=== PATIENT | female | born 1955 | race Caucasian/White ===

== ENCOUNTER → 2018-06-06 09:45 | Outpatient (CLI) | payer BC, SELFPAY ==
[2018-06-06 10:55] LABS: Add Manual Diff / Slide Review NO; Basophils Percent Auto 0.9 % (0-2); Eosinophils Percent Auto 0.5 % (2-4); Hematocrit 35.4 % (36-46); Hemoglobin 12.1 g/dL (12.0-16.0); Lymphocytes Percent Auto 42.6 % (25-40); Mean Corpuscular HGB Conc 34.1 % (30-36); Mean Corpuscular Volume 99.9 fL (80-100); Monocytes Percent Auto 6.1 % (3-14); Neutrophils Absolute Auto 2100 /uL (1500-7000); Neutrophils Percent Auto 49.9 % (50-75); Platelet Count 250 X10^3/uL (150-400); Red Blood Cell Count 3.55 X10^6/uL (4.0-5.2); Red Cell Distribution Width 12.9 % (11.6-14.8); White Blood Cell Count 4.2 X10^3/uL (4.5-11.0)
[2018-06-06 11:01] LABS: Alanine Aminotransferase 18 IU/L (9-52); Albumin 4.3 g/dL (3.5-5.0); Alkaline Phosphatase 69 U/L (38-126); Aspartate Aminotransferase 21 IU/L (14-36); Bilirubin Total 0.4 mg/dL (0.2-1.3); Blood Urea Nitrogen 12 mg/dL (7-17); Calcium 8.9 mg/dL (8.4-10.2); Carbon Dioxide 25 mmol/L (22-32); Chloride 106 mmol/L (98-107); Cholesterol 142 mg/dL (140-199); Globulin 4.3 g/dL (1.7-4.1); Glucose 97 mg/dL (80-110); HDL Cholesterol 65 mg/dL (40-60); HEMOLYSIS < 15 (0-50); LDL Cholesterol Calculated 58 mg/dL (<100); Potassium 4.3 mmol/L (3.4-5.1); Sodium 142 mmol/L (137-145); Total Protein 8.6 g/dL (6.3-8.2); Triglycerides 94 mg/dL (35-150)
[2018-06-06 11:38] LABS: Thyroid Stimulating Hormone 2.02 uIU/mL (0.47-4.68)
== END ==
PROVIDERS: PCP Family Medicine
DX: Z13.228 Encounter for screening for other metabolic disorders (principal); Z13.220 Encounter for screening for lipoid disorders; Z13.0 Encounter for screening for diseases of the blood and blood-forming organs and certain disorders involving the immune mechanism; Z13.29 Encounter for screening for other suspected endocrine disorder
CPT/HCPCS: 36415; 80053; 80061; 84443; 85025

== ENCOUNTER → 2019-04-22 10:47 | Outpatient (CLI) | payer BC, SELFPAY ==
[2019-04-22 12:28] LABS: Alanine Aminotransferase 23 IU/L (<35); Albumin 4.2 g/dL (3.5-5.0); Albumin Globulin Ratio 0.9 (1.0-2.8); Alkaline Phosphatase 88 U/L (38-126); Aspartate Aminotransferase 28 IU/L (14-36); BUN Creatinine Ratio 8.9 (6-22); Bilirubin Total 0.5 mg/dL (0.2-1.3); Blood Urea Nitrogen 8 mg/dL (7-17); Carbon Dioxide 28 mmol/L (22-32); Chloride 105 mmol/L (98-107); Cholesterol 161 mg/dL (140-199); Estimated Glomerular Filt Rate > 60.0 mL/min (>60); Globulin 4.6 g/dL (1.7-4.1); Glucose 99 mg/dL (80-110); HDL Cholesterol 55 mg/dL (40-60); HEMOLYSIS < 15 (0-50); LDL Cholesterol Calculated 74 mg/dL (<100); Potassium 4.2 mmol/L (3.4-5.1); Sodium 138 mmol/L (137-145); Total Protein 8.8 g/dL (6.3-8.2); Triglycerides 161 mg/dL (35-150)
== END ==
PROVIDERS: PCP Family Medicine; Visit Provider Family Medicine
DX: Z51.81 Encounter for therapeutic drug level monitoring (principal); E03.9 Hypothyroidism, unspecified
CPT/HCPCS: 36415; 80053; 80061; 84443

== ENCOUNTER → 2019-05-02 11:46 | Outpatient (CLI) | payer BC, SELFPAY ==
[2019-05-02 15:54] LABS: Creatinine Urine Random 26.4 mg/dL; Protein (Total) Urine Random 15 mg/dL (0-12); Protein Creatinine Ratio Urine 0.56 GRAM/24H
[2019-05-06 15:00] LABS: Albumin 100 %; Total Urine Protein < 4 mg/dL (5-24); Urine Creatinine, Random 25 mg/dL (20-275)
[2019-05-06 15:18] LABS: Abnormal Protein Band 1 2.3 g/dL (NONE DETECTED); Albumin 3.9 g/dL (3.8-4.8); Alpha 1 Globulin 0.4 g/dL (0.2-0.3); Alpha 2 Globulin 0.8 g/dL (0.5-0.9); Beta 1 Globulin 0.4 g/dL (0.4-0.6); Gamma Globulin 2.5 g/dL (0.8-1.7); Protein, Total 8.3 g/dL (6.1-8.1)
== END ==
PROVIDERS: PCP Family Medicine; Visit Provider Student in an Organized Health Care Education/Training Program
DX: D47.2 Monoclonal gammopathy (principal)
CPT/HCPCS: 36415; 82570; 84155; 84156; 84165; 84166

== ENCOUNTER → 2019-05-04 10:20 | Outpatient (CLI) | payer BC, SELFPAY ==
[2019-05-04 14:52] LABS: Protein (Total) Urine Random 13 mg/dL (0-12)
[2019-05-04 15:03] LABS: Collection Time Urine 24 Hours
[2019-05-04 15:04] LABS: Total Protein 24 Hour Urine 332 mg/day (42-225); Total Volume Urine 2550 mL
== END ==
PROVIDERS: PCP Family Medicine; Visit Provider Student in an Organized Health Care Education/Training Program
DX: D47.2 Monoclonal gammopathy (principal)
CPT/HCPCS: 84156

== ENCOUNTER → 2019-08-29 10:40 | Oncology outpatient (ONC) | payer BC, MEDICARE, OTHER, SELFPAY ==
[2019-06-13 14:07] VITALS: BP 134/89; PULSE 89; RESP 18; TEMP 36.9; O2SAT 99
--- NOTE | 2019-06-13 14:09 | P.CONONC_ITS ---
History of Present Illness - Data of Consult Patient: new to practice Consult date: 06/13/19 Requesting Physician: Troy Camejo MD Primary Care Provider: Lizeth Goetz DO - Consult Narrative Reason for consult: MGUS Narrative: Dominga Sparks is a 63 year old female. During a routine lab tests before her Gabapentin renewal on 04/22/2019, her total protein was elevated t 8.8. Ther efore on 05/02/2019, she underwent SPEP that showed elevated nrbfj-2-maiqtvekn, gamma globulins and abnormal protein band migrating in the gamma region with concentration of 2.3 g/dl. She was then referred by Darnell Camejo to [facility]. Clinically, except left lower extremity neuropathy, patient does not have any signs or symptoms. She reports good energy. No bone pain. Occasional migraine. No SOB. No CP. No n/v. Bowel movement normal. Weight has been stable. CC: Doug Machado MD Patient reports pain?: No Home Medications and Allergies Home Medications Medication Instructions Recorded Confirmed Type estradiol 1 mg PO Q OTHER DAY #0 07/26/17 06/13/19 History rizatriptan [Maxalt-CONTOUR BAND SAW OPERATOR VERTICAL] 10 mg PO PRN PRN #0 07/26/17 06/13/19 History gabapentin 300 mg capsule 900 mg PO BID #180 cap 04/26/19 06/13/19 Rx levothyroxine 75 mcg tablet 75 mcg PO DAILY #90 tab 05/02/19 06/13/19 Rx Allergies Allergy/AdvReac Type Severity Reaction Status Date / Time cephalexin [From KEFLEX] Allergy Intermediate hives Verified 05/09/19 15:34 Sulfa (Sulfonamide Allergy Intermediate hives Verified 05/09/19 15:34 Antibiotics) [SULFA (SULFONAMIDE ANTIBIOTICS)] Medical History - Medical, Surgical, Family History Medical History: Medical History (Last Updated 06/13/19 @ 14:18 by Doug Machado MD) Allergic rhinitis Onset Date: 1965 Anemia Onset Date: Unknown Chickenpox Onset Date: 1960 Fractures Onset Date: Unknown Hearing loss Onset Date: Unknown Hypothyroidism Onset Date: 2012 MGUS (monoclonal gammopathy of unknown significance) Migraines Onset Date: 1994 Osteopenia Onset Date: 2003 Reflex sympathetic dystrophy Onset Date: 2003 Scarlet fever Onset Date: 1958 Skin cancer Onset Date: 2011 Surgical History: Surgical History (Last Reviewed 08/20/18 @ 15:33 by Lizeth Goetz DO) History of arthroscopy of right shoulder Onset Date: 2016 History of repair of ACL Onset Date: 1992 Hx of appendectomy Onset Date: 1962 Family History: Family History Father Heart disease Hypertension High cholesterol Grandmother Heart disease - Social History Smoking Status: Never smoker Substance Use Type: does not use Alcohol Intake: never Review of Systems All systems PM: reviewed and no additional remarkable complaints except as stated Exam Vital signs: Vital Signs Temp Pulse Resp BP Pulse Ox 06/13/19 14:07 98.4 F 89 18 134/89 99 Intake and Output 06/12/19 06/13/19 06/13/19 23:59 07:59 15:59 Other: Weight 70.1 kg Patient Weight 06/13/19 23:59 Weight 70.1 kg Narrative: Gen: WDWN, NAD, pleasant and cooperative. HEENT: NCAT, EOMI, PERRLA, anicteric sclera. Neck: Supple, No palpable thyromegaly or lymphadenopathy. Respiratory: CTAB, no wheezes audible. No JVD Cardiovascular: RRR, S1 and S2 normal, no M/G/R. Abdomen: Soft, NTND, BS normal, no palpable organomegaly Extremities: No LE pitting edema. Lymphatic: no palpable lymph nodes in the neck, axillae, or groins. Neurological: AOx3, CN II-XII grossly intact. No focal motor or sensory deficit. Psychiatric: Good judgment and insight; normal affect; normal thought process; cooperative, no depression, no anxiety. Results - Labs See HPI Assessment and Plan (1) Monoclonal gammopathy Overview: 63-year-old female with findings of abnormal protein in the serum migrating in the gamma region with concentration of 2.3 g/dl. Assessment I explained to the patient that the presence of monoclonal protein in the blood indicates possible abnormal plasma cell disorder. It's a spectrum ranging from asmptomatic monoclonal gammopathy of unknown significance, smoldering multiple myeloma to full-blown symtomatic multiple myeloma. Depending on where the patient is at along the spectrum, the treatment would be different. It can be just continued monitoring if it is monoclonal gammopathy of unknown significance, to chemotherapy followed by bone marrow transplant followed by more chemotherapy and maintenance therapy if it is diagnosed as full-blown multiple myeloma. Patient voiced understanding. However patient said that she would like to get a second opinion from [facility] before committing to any treatment. I completely support patient's decision. I will enter the order for second opinion and will have the patient come back in 1 month for follow-up visit. Plan: 1. CBC, CMP, B2M, LDH, SPEP, IFIX, SFLC 2. Referral to [facility]/ for second opinion 3. RTC in one month for follow up visit.
[2019-06-14 09:45] LABS: Add Manual Diff / Slide Review NO; Basophils Absolute Auto 0 /uL (0-100); Basophils Percent Auto 0.9 % (0-2); Eosinophils Absolute Auto 0 /uL (0-450); Eosinophils Percent Auto 0.6 % (2-4); Hematocrit 34.8 % (36-46); Hemoglobin 12.1 g/dL (12.0-16.0); Lymphocytes Absolute Auto 2400 /uL (1100-4500); Lymphocytes Percent Auto 48.6 % (25-40); Mean Corpuscular HGB Conc 34.6 % (30-36); Mean Corpuscular Hemoglobin 33.9 PG (26-34); Mean Corpuscular Volume 97.8 fL (80-100); Monocytes Absolute Auto 200 /uL (0-900); Monocytes Percent Auto 5.2 % (3-14); Neutrophils Absolute Auto 2200 /uL (1500-7000); Neutrophils Percent Auto 44.7 % (50-75); Platelet Count 260 X10^3/uL (150-400); Red Blood Cell Count 3.56 X10^6/uL (4.0-5.2); Red Cell Distribution Width 12.9 % (11.6-14.8); White Blood Cell Count 4.8 X10^3/uL (4.5-11.0)
[2019-06-14 09:59] LABS: Alanine Aminotransferase 20 IU/L (<35); Albumin 4.3 g/dL (3.5-5.0); Albumin Globulin Ratio 0.9 (1.0-2.8); Alkaline Phosphatase 84 U/L (38-126); Aspartate Aminotransferase 26 IU/L (14-36); Bilirubin Total 0.5 mg/dL (0.2-1.3); Blood Urea Nitrogen 11 mg/dL (7-17); Calcium 9.2 mg/dL (8.4-10.2); Carbon Dioxide 27 mmol/L (22-32); Chloride 103 mmol/L (98-107); Estimated Glomerular Filt Rate 55.8 mL/min (>60); Globulin 4.6 g/dL (1.7-4.1); Glucose 120 mg/dL (80-110); HEMOLYSIS < 15 (0-50); Lactate Dehydrogenase 407 U/L (313-618); Potassium 3.6 mmol/L (3.4-5.1); Sodium 139 mmol/L (137-145); Total Protein 8.9 g/dL (6.3-8.2)
[2019-06-18 11:51] LABS: Beta-2-Microglobulin 2.65 mg/L (< 2.52)
[2019-06-18 14:01] LABS: Free Kappa Light Chain 67.4 mg/L (3.3-19.4); Free Lambda 8.9 mg/L (5.7-26.3)
[2019-06-18 20:41] LABS: Abnormal Protein Band 1 2.2 g/dL (NONE DETECTED); Alpha 1 Globulin 0.3 g/dL (0.2-0.3); Alpha 2 Globulin 0.7 g/dL (0.5-0.9); Beta 1 Globulin 0.4 g/dL (0.4-0.6); Gamma Globulin 2.4 g/dL (0.8-1.7); Protein, Total 8.1 g/dL (6.1-8.1)
--- NOTE | 2019-07-10 12:25 | ONC.SCHED ---
Patient scheduled for consult at [facility] on August 09, 2019.
[2019-07-11 13:31] VITALS: BP 125/79; PULSE 82; RESP 18; TEMP 36.8; O2SAT 98
--- NOTE | 2019-07-11 13:37 | P.PNONC_ITS ---
PN -Subjective Interval history: ID/CC: Dominga Sparks is a 63 year old female with MM IgG [place], smouldering vs full- blown History of Present Illness: During a routine lab tests on 04/22/2019, her total protein was elevated 8.8. Follow up SPEP on 05/02/2019 showed elevated ftuaw-1-jenmjyjpk, gamma globulins and abnormal protein band migrating in the gamma region with concentration of 2.3 g/dl. She was then referred by Darnell Camejo to [facility]. Clinically, except left lower extremity neuropathy, patient does not have any si gns or symptoms. Therapies: None. Interim Events: She reports good energy. No bone pain. Occasional migraine. No SOB. No CP. No n/v. Bowel movement normal. Weight has been stable. She has already set up appointment at [facility] on 07/09/2019. - Patient Self-Reported Symptoms SR Neuro issues: Numbness or tingling - Additional ROS All systems PM: reviewed and no additional remarkable complaints except as stated Home Medications and Allergies Home Medications Medication Instructions Recorded Confirmed Type estradiol 1 mg PO Q OTHER DAY #0 07/26/17 06/13/19 History rizatriptan [Maxalt-SUPERVISOR ORNAMENTAL [employer]ONWORKING] 10 mg PO PRN PRN #0 07/26/17 06/13/19 History gabapentin 300 mg capsule 900 mg PO BID #180 cap 04/26/19 06/13/19 Rx levothyroxine 75 mcg tablet 75 mcg PO DAILY #90 tab 05/02/19 06/13/19 Rx Allergies Allergy/AdvReac Type Severity Reaction Status Date / Time cephalexin [From KEFLEX] Allergy Intermediate hives Verified 05/09/19 15:34 Sulfa (Sulfonamide Allergy Intermediate hives Verified 05/09/19 15:34 Antibiotics) [SULFA (SULFONAMIDE ANTIBIOTICS)] Exam Vital signs: Vital Signs Temp Pulse Resp BP Pulse Ox 07/11/19 13:31 98.3 F 82 18 125/79 98 Intake and Output 07/10/19 07/11/19 07/11/19 23:59 07:59 15:59 Other: Weight 70.8 kg Patient Weight 07/11/19 23:59 Weight 70.8 kg Narrative: Gen: WDWN, NAD, pleasant and cooperative. HEENT: NCAT, EOMI, PERRLA, anicteric sclera. Neck: Supple, No palpable thyromegaly or lymphadenopathy. Respiratory: CTAB, no wheezes audible. No JVD Cardiovascular: RRR, S1 and S2 normal, no M/G/R. Abdomen: Soft, NTND, BS normal, no palpable organomegaly Extremities: No LE pitting edema. Lymphatic: no palpable lymph nodes in the neck, axillae, or groins. Neurological: AOx3, CN II-XII grossly intact. No focal motor or sensory deficit. Psychiatric: Good judgment and insight; normal affect; normal thought process; cooperative, no depression, no anxiety. Results - Labs Laboratory Last Values WBC 4.8 X10^3/uL (4.5-11.0) 06/14/19 09:34 RBC 3.56 X10^6/uL (4.0-5.2) L 06/14/19 09:34 Hgb 12.1 g/dL (12.0-16.0) 06/14/19 09:34 Hct 34.8 % (36-46) L 06/14/19 09:34 MCV 97.8 fL (80-100) 06/14/19 09:34 MCH 33.9 PG (26-34) 06/14/19 09:34 MCHC 34.6 % (30-36) 06/14/19 09:34 RDW 12.9 % (11.6-14.8) 06/14/19 09:34 Plt Count 260 X10^3/uL (150-400) 06/14/19 09:34 Neut % (Auto) 44.7 % (50-75) L 06/14/19 09:34 Lymph % (Auto) 48.6 % (25-40) H 06/14/19 09:34 [place] % (Auto) 5.2 % (3-14) 06/14/19 09:34 Eos % (Auto) 0.6 % (2-4) L 06/14/19 09:34 Baso % (Auto) 0.9 % (0-2) 06/14/19 09:34 Neut # (Auto) 2200 /uL (5579-1572) 06/14/19 09:34 Lymph # (Auto) 2400 /uL (0059-0953) 06/14/19 09:34 [place] # (Auto) 200 /uL (0-900) 06/14/19 09:34 Eos # (Auto) 0 /uL (0-450) 06/14/19 09:34 Baso # (Auto) 0 /uL (0-100) 06/14/19 09:34 Sodium 139 mmol/L (137-145) 06/14/19 09:34 Potassium 3.6 mmol/L (3.4-5.1) 06/14/19 09:34 Chloride 103 mmol/L (98-107) 06/14/19 09:34 Carbon Dioxide 27 mmol/L (22-32) 06/14/19 09:34 BUN 11 mg/dL (7-17) 06/14/19 09:34 Creatinine 1.00 mg/dL (0.52-1.04) 06/14/19 09:34 Estimated GFR 55.8 mL/min (>60) L 06/14/19 09:34 BUN/Creatinine Ratio 11.0 (6-22) 06/14/19 09:34 Glucose 120 mg/dL (80-110) H 06/14/19 09:34 Calcium 9.2 mg/dL (8.4-10.2) 06/14/19 09:34 Total Bilirubin 0.5 mg/dL (0.2-1.3) 06/14/19 09:34 AST 26 IU/L (14-36) 06/14/19 09:34 ALT 20 IU/L (<35) 06/14/19 09:34 Alkaline Phosphatase 84 U/L (38-126) 06/14/19 09:34 Lactate Dehydrogenase 407 U/L (313-618) 06/14/19 09:34 Serum Total Protein 8.1 g/dL (6.1-8.1) 06/14/19 09:34 Total Protein 8.9 g/dL (6.3-8.2) H 06/14/19 09:34 Albumin 4.0 g/dL (3.8-4.8) 06/14/19 09:34 Albumin 4.3 g/dL (3.5-5.0) 06/14/19 09:34 Globulin 4.6 g/dL (1.7-4.1) H 06/14/19 09:34 Albumin/Globulin Ratio 0.9 (1.0-2.8) L 06/14/19 09:34 Sbqlw-7-Ibdelniso 0.3 g/dL (0.2-0.3) 06/14/19 09:34 Ybjdx-9-Uilquzmqh 0.7 g/dL (0.5-0.9) 06/14/19 09:34 Swtn-5-Emhtuova 0.4 g/dL (0.4-0.6) 06/14/19 09:34 Uepy-3-Zuxejdcn 0.3 g/dL (0.2-0.5) 06/14/19 09:34 Dkky-5-Rotstznhtgxsq 2.65 mg/L (< 2.52) H 06/14/19 09:34 Gamma Globulins 2.4 g/dL (0.8-1.7) H 06/14/19 09:34 Abnorm Protein Band 1 2.2 g/dL (NONE DETECTED) A 06/14/19 09:34 Abnorm Protein Band 2 Not Reportable 06/14/19 09:34 Abn Gamma Band 3 Serum Not Reportable 06/14/19 09:34 PEP Comment See note 06/14/19 09:34 JEREMY & SPEP Interp See note 06/14/19 09:34 Serum Immunofixation See note 06/14/19 09:34 Free [place] Light Chains 67.4 mg/L (3.3-19.4) H 06/14/19 09:34 Free Lambda Light Chain 8.9 mg/L (5.7-26.3) 06/14/19 09:34 Free [place]/Lambda Ratio 7.60 (0.26-1.65) H 06/14/19 09:34 Assessment and Plan (1) Multiple myeloma Overview: 63-year-old female with MM IgG [place], smouldering vs full-blown Assessment I reviewed the lab tests with the patient. Patient's serum total protein was 8.9, microglobulin 2.65, gamma globulin 2.4, M-spike 2.2, immunofixation confirmed that the monoclonal band to be IgG kappa. Serum free lambda light chain 8.9, serum free kappa light chain 67.4. I talked with the patient that these results are suspicious for multiple myeloma including smoldering multiple myeloma versus a full-blown multiple myeloma. I think she will need a bone marrow aspiration and biopsy. Patient said that she is going to go to [facility] for the second opinion and then decide. Plan: 1. [facility] visit on 08/09/2019 2. RTC after [facility] visit.
--- NOTE | 2019-08-29 11:00 | ONC.PN ---
PN -Subjective Interval history: ID/CC: Dominga Sparks is a 64 year old female with MM IgG [address], smouldering vs full-blown History of Present Illness: During a routine lab tests on 04/22/2019, her total protein was elevated 8.8. Follow up SPEP on 05/02/2019 showed elevated yuwbi-7-qkxnytapi, gamma globulins and abnormal protein band migrating in the gamma region with concentration of 2.3 g/dl. She was then referred by Darnell Camejo to [facility]. Clinically, except left lower extremity neuropathy, patient does not have any signs or symptoms. Interim Events: Since her previous visit, patient was evaluated at [facility] by Demetrio Potter. Bone marrow aspiration biopsy was recommended. Patient has already signed the consent and is waiting for Dr. Brown to schedule the bone marrow aspiration and biopsy. In addition patient underwent bone survey on 08/09/2019. It showed no suspicious lytic or blastic lesions. Patient presents here today for scheduled follow-up visit. No new signs or symptoms. Therapies: None. - Patient Self-Reported Symptoms SR Neuro issues: Numbness or tingling - Additional ROS All systems PM: reviewed and no additional remarkable complaints except as stated Home Medications and Allergies Home Medications Medication Instructions Recorded Confirmed Type estradiol 1 mg PO Q OTHER DAY #0 07/26/17 08/29/19 History rizatriptan [Maxalt-DIRECTOR PROCESS] 10 mg PO PRN PRN #0 07/26/17 08/29/19 History gabapentin 300 mg capsule 900 mg PO BID #180 cap 04/26/19 08/29/19 Rx levothyroxine 75 mcg tablet 75 mcg PO DAILY #90 tab 07/23/19 08/29/19 Rx Allergies Allergy/AdvReac Type Severity Reaction Status Date / Time cephalexin [From KEFLEX] Allergy Intermediate hives Verified 05/09/19 15:34 Sulfa (Sulfonamide Allergy Intermediate hives Verified 05/09/19 15:34 Antibiotics) [SULFA (SULFONAMIDE ANTIBIOTICS)] Exam Vital signs: 08/29/19 11:21 Last Vital Signs Temp 97.7 F 08/29/19 11:01 Pulse 69 08/29/19 11:01 Resp 16 08/29/19 11:01 BP 145/83 H 03/12/20 11:01 Pulse Ox 99 08/29/19 11:01 Narrative: ECOG 1 Gen: WDWN, NAD, pleasant and cooperative. HEENT: NCAT, EOMI, PERRLA, anicteric sclera. Neck: Supple, No palpable thyromegaly or lymphadenopathy. Respiratory: CTAB, no wheezes audible. No JVD Cardiovascular: RRR, S1 and S2 normal, no M/G/R. Abdomen: Soft, NTND, BS normal, no palpable organomegaly Extremities: No LE pitting edema. Lymphatic: no palpable lymph nodes in the neck, axillae, or groins. Neurological: AOx3, CN II-XII grossly intact. No focal motor or sensory deficit. Psychiatric: Normal affect, appropriate mood, no depression, no anxiety. Results - Labs Laboratory Last Values WBC 4.8 X10^3/uL (4.5-11.0) 06/14/19 09:34 RBC 3.56 X10^6/uL (4.0-5.2) L 06/14/19 09:34 Hgb 12.1 g/dL (12.0-16.0) 06/14/19 09:34 Hct 34.8 % (36-46) L 06/14/19 09:34 MCV 97.8 fL (80-100) 06/14/19 09:34 MCH 33.9 PG (26-34) 06/14/19 09:34 MCHC 34.6 % (30-36) 06/14/19 09:34 RDW 12.9 % (11.6-14.8) 06/14/19 09:34 Plt Count 260 X10^3/uL (150-400) 06/14/19 09:34 Neut % (Auto) 44.7 % (50-75) L 06/14/19 09:34 Lymph % (Auto) 48.6 % (25-40) H 06/14/19 09:34 [place] % (Auto) 5.2 % (3-14) 06/14/19 09:34 Eos % (Auto) 0.6 % (2-4) L 06/14/19 09:34 Baso % (Auto) 0.9 % (0-2) 06/14/19 09:34 Neut # (Auto) 2200 /uL (9363-7894) 06/14/19 09:34 Lymph # (Auto) 2400 /uL (5523-2052) 06/14/19 09:34 [place] # (Auto) 200 /uL (0-900) 06/14/19 09:34 Eos # (Auto) 0 /uL (0-450) 06/14/19 09:34 Baso # (Auto) 0 /uL (0-100) 06/14/19 09:34 Sodium 139 mmol/L (137-145) 06/14/19 09:34 Potassium 3.6 mmol/L (3.4-5.1) 06/14/19 09:34 Chloride 103 mmol/L (98-107) 06/14/19 09:34 Carbon Dioxide 27 mmol/L (22-32) 06/14/19 09:34 BUN 11 mg/dL (7-17) 06/14/19 09:34 Creatinine 1.00 mg/dL (0.52-1.04) 06/14/19 09:34 Estimated GFR 55.8 mL/min (>60) L 06/14/19 09:34 BUN/Creatinine Ratio 11.0 (6-22) 06/14/19 09:34 Glucose 120 mg/dL (80-110) H 06/14/19 09:34 Calcium 9.2 mg/dL (8.4-10.2) 06/14/19 09:34 Total Bilirubin 0.5 mg/dL (0.2-1.3) 06/14/19 09:34 AST 26 IU/L (14-36) 06/14/19 09:34 ALT 20 IU/L (<35) 06/14/19 09:34 Alkaline Phosphatase 84 U/L (38-126) 06/14/19 09:34 Lactate Dehydrogenase 407 U/L (313-618) 06/14/19 09:34 Serum Total Protein 8.1 g/dL (6.1-8.1) 06/14/19 09:34 Total Protein 8.9 g/dL (6.3-8.2) H 06/14/19 09:34 Albumin 4.0 g/dL (3.8-4.8) 06/14/19 09:34 Albumin 4.3 g/dL (3.5-5.0) 06/14/19 09:34 Globulin 4.6 g/dL (1.7-4.1) H 06/14/19 09:34 Albumin/Globulin Ratio 0.9 (1.0-2.8) L 06/14/19 09:34 Nyaas-7-Kdygivtqc 0.3 g/dL (0.2-0.3) 06/14/19 09:34 Oguih-1-Ysdxffodc 0.7 g/dL (0.5-0.9) 06/14/19 09:34 Ejbk-5-Olcaxaaj 0.4 g/dL (0.4-0.6) 06/14/19 09:34 Zvme-8-Gbeghdbb 0.3 g/dL (0.2-0.5) 06/14/19 09:34 Qncc-9-Ipmmermioglnq 2.65 mg/L (< 2.52) H 06/14/19 09:34 Gamma Globulins 2.4 g/dL (0.8-1.7) H 06/14/19 09:34 Abnorm Protein Band 1 2.2 g/dL (NONE DETECTED) A 06/14/19 09:34 Abnorm Protein Band 2 Not Reportable 06/14/19 09:34 Abn Gamma Band 3 Serum Not Reportable 06/14/19 09:34 PEP Comment See note 06/14/19 09:34 JEREMY & SPEP Interp See note 06/14/19 09:34 Serum Immunofixation See note 06/14/19 09:[address] Light Chains 67.4 mg/L (3.3-19.4) H 06/14/19 09:34 Free Lambda Light Chain 8.9 mg/L (5.7-26.3) 06/14/19 09:[address]/Lambda Ratio 7.60 (0.26-1.65) H 06/14/19 09:34 Assessment and Plan (1) Multiple myeloma Overview: 64-year-old female with MM IgG [address], smouldering vs full-blown Assessment Patient currently is being evaluated at [facility] by Demetrio Potter at [facility]. Bone marrow aspiration biopsy has already been consented and pending schedule. Patient said that after the bone marrow aspiration and biopsy, she will call us for follow-up visit. Today I reviewed the labs from [facility] and also the bone survey report with the patient. The monoclonal protein concentration remains about the same. The serum free light chain also remains about the same. The bone survey did not review any lytic or blastic lesions. Plan: 1. Bone marrow aspiration and biopsy at [facility]/ 2. Patient will call for follow-up visit after the [facility] bone marrow aspiration and biopsy.
[2019-08-29 11:01] VITALS: BP 145/83; PULSE 69; RESP 16; TEMP 36.5; O2SAT 99
== END ==
PROVIDERS: PCP Family Medicine; Visit Provider Internal Medicine Hematology & Oncology
DX: C90.00 Multiple myeloma not having achieved remission (principal)
CPT/HCPCS: 36415; 80053; 82232; 82784; 83615; 83883; 84155; 84165; 85025; 86334; 99204; 99214; 99215

== ENCOUNTER → 2020-02-20 08:16 | Outpatient (CLI) | payer MEDICARE, OTHER, SELFPAY ==
[2020-02-20 09:17] LABS: BUN Creatinine Ratio 11.6 (6-22); Blood Urea Nitrogen 11 mg/dL (7-17); Calcium 9.2 mg/dL (8.4-10.2); Carbon Dioxide 27 mmol/L (22-32); Chloride 106 mmol/L (98-107); Glucose 104 mg/dL (80-110); HEMOLYSIS < 15 (0-50); Potassium 4.2 mmol/L (3.4-5.1); Sodium 138 mmol/L (137-145)
[2020-02-20 09:45] LABS: Thyroid Stimulating Hormone 1.05 uIU/mL (0.47-4.68)
== END ==
PROVIDERS: PCP Nurse Practitioner Family; Referring Provider Nurse Practitioner Family; Visit Provider Nurse Practitioner Family
DX: R79.9 Abnormal finding of blood chemistry, unspecified (principal); E03.9 Hypothyroidism, unspecified
CPT/HCPCS: 36415; 80048; 84443

== ENCOUNTER → 2020-09-11 09:44 | Outpatient (CLI) | payer MEDICARE, OTHER, SELFPAY ==
--- NOTE | 2020-09-11 09:45 | DI.RAD.S_ITS ---
PROCEDURE: XR DEXA AXIAL SKELETON INDICATIONS: monitoring COMPARISON: None. FINDINGS: This blank DEXA report has been sent in error by the PACS system. The correct and complete report will be forthcoming in 1-2 days. Thank you for your patience and understanding. Dictated by: Jackelyn Vasquez MD, PhD on 09/11/2020 at 15:10 Approved by: Jackelyn Vasquez MD, PhD on 09/11/2020 at 15:10
== END ==
PROVIDERS: PCP Nurse Practitioner Family; Referring Provider Nurse Practitioner Family; Visit Provider Nurse Practitioner Family
DX: M85.88 Other specified disorders of bone density and structure, other site (principal); Z78.0 Asymptomatic menopausal state; E07.9 Disorder of thyroid, unspecified
CPT/HCPCS: 77080

== ENCOUNTER → 2020-11-30 08:25 | Outpatient (CLI) | payer MEDICARE, OTHER, SELFPAY ==
[2020-11-30 10:08] LABS: Cholesterol 157 mg/dL (140-199); HDL Cholesterol 62 mg/dL (40-60); LDL Cholesterol Calculated 71 mg/dL (<100); Triglycerides 121 mg/dL (35-150)
[2020-11-30 10:59] LABS: Free T4, Direct Thyroxine 1.68 ng/dL (0.78-2.19)
[2020-11-30 11:01] LABS: Vitamin D 25 Hydroxy (D3) 27.2 ng/mL (30.0-100.0)
[2020-11-30 11:12] LABS: Thyroid Stimulating Hormone 1.45 uIU/mL (0.47-4.68)
== END ==
PROVIDERS: PCP Nurse Practitioner Family; Referring Provider Nurse Practitioner Family; Visit Provider Nurse Practitioner Family
DX: M85.80 Other specified disorders of bone density and structure, unspecified site (principal); E03.9 Hypothyroidism, unspecified; Z13.6 Encounter for screening for cardiovascular disorders
CPT/HCPCS: 36415; 80061; 82306; 84439; 84443

== ENCOUNTER → 2021-03-31 11:31 | Outpatient (CLI) | payer MEDICARE, OTHER, SELFPAY ==
[2021-03-31 12:21] LABS: Hematocrit 35.6 % (36-46); Hemoglobin 11.9 g/dL (12.0-16.0); Mean Corpuscular HGB Conc 33.4 % (30-36); Mean Corpuscular Hemoglobin 32.3 PG (26-34); Mean Corpuscular Volume 96.7 fL (80-100); Platelet Count 274 X10^3/uL (150-400); Red Blood Cell Count 3.68 X10^6/uL (4.0-5.2); Red Cell Distribution Width 12.6 % (11.6-14.8); White Blood Cell Count 4.4 X10^3/uL (4.5-11.0)
[2021-03-31 13:24] LABS: Free T4, Direct Thyroxine 1.67 ng/dL (0.78-2.19)
[2021-03-31 13:34] LABS: Alanine Aminotransferase 22 IU/L (<35); Albumin 4.2 g/dL (3.5-5.0); Alkaline Phosphatase 89 U/L (38-126); Aspartate Aminotransferase 27 IU/L (14-36); BUN Creatinine Ratio 9.2 (6-22); Bilirubin Total 0.4 mg/dL (0.2-1.3); Blood Urea Nitrogen 8 mg/dL (7-17); Calcium 9.8 mg/dL (8.4-10.2); Carbon Dioxide 24 mmol/L (22-32); Chloride 105 mmol/L (98-107); Cholesterol 141 mg/dL (140-199); Estimated Glomerular Filt Rate > 60.0 mL/min (>60); Globulin 4.1 g/dL (1.7-4.1); Glucose 98 mg/dL (80-110); HDL Cholesterol 67 mg/dL (40-60); HEMOLYSIS 23 (0-50); LDL Cholesterol Calculated 42 mg/dL (<100); Potassium 4.4 mmol/L (3.4-5.1); Sodium 139 mmol/L (137-145); Total Protein 8.3 g/dL (6.3-8.2); Triglycerides 161 mg/dL (35-150)
[2021-03-31 13:38] LABS: Thyroid Stimulating Hormone 0.082 uIU/mL (0.47-4.68)
[2021-03-31 22:54] LABS: Vitamin D 25 Hydroxy (D3) 44.3 ng/mL (30.0-100.0)
== END ==
PROVIDERS: PCP Nurse Practitioner Family; Referring Provider Nurse Practitioner Family; Visit Provider Nurse Practitioner Family
DX: Z00.00 Encounter for general adult medical examination without abnormal findings (principal); E03.9 Hypothyroidism, unspecified; Z13.6 Encounter for screening for cardiovascular disorders; E55.9 Vitamin D deficiency, unspecified; M85.80 Other specified disorders of bone density and structure, unspecified site
CPT/HCPCS: 36415; 80053; 80061; 82306; 84439; 84443; 85027

== ENCOUNTER → 2021-05-12 08:21 | Outpatient (CLI) | payer MEDICARE, OTHER, SELFPAY ==
[2021-05-12 11:05] LABS: Free T4, Direct Thyroxine 0.98 ng/dL (0.78-2.19)
[2021-05-12 11:19] LABS: Thyroid Stimulating Hormone 17.1 uIU/mL (0.47-4.68)
[2021-05-15 00:15] LABS: Albumin 3.6 g/dL (2.9-4.4); Alpha 1 Globulin 0.2 g/dL (0.0-0.4); Alpha 2 Globulin 0.8 g/dL (0.4-1.0); Beta 1 Globulin 0.8 g/dL (0.7-1.3); Gamma Globulin 2.6 g/dL (0.4-1.8); Immunoglobulin A 42 mg/dL (87-352); Immunoglobulin G 2906 mg/dL (586-1602); Immunoglobulin M 70 mg/dL (26-217)
== END ==
PROVIDERS: PCP Nurse Practitioner Family; Referring Provider Nurse Practitioner Family; Visit Provider Nurse Practitioner Family
DX: E03.9 Hypothyroidism, unspecified (principal); R77.9 Abnormality of plasma protein, unspecified
CPT/HCPCS: 36415; 84155; 84165; 84439; 84443

== ENCOUNTER → 2021-07-08 12:37 | Outpatient (CLI) | payer MEDICARE, OTHER, SELFPAY ==
[2021-07-08 13:29] LABS: Add Manual Diff / Slide Review NO; Basophils Absolute Auto 0 /uL (0-100); Basophils Percent Auto 0.5 % (0-2); Eosinophils Absolute Auto 0 /uL (0-450); Eosinophils Percent Auto 0.5 % (2-4); Hematocrit 32.6 % (36-46); Hemoglobin 11.2 g/dL (12.0-16.0); Lymphocytes Absolute Auto 2400 /uL (1100-4500); Lymphocytes Percent Auto 48.8 % (25-40); Mean Corpuscular HGB Conc 34.3 % (30-36); Mean Corpuscular Hemoglobin 32.9 PG (26-34); Mean Corpuscular Volume 95.9 fL (80-100); Monocytes Absolute Auto 300 /uL (0-900); Monocytes Percent Auto 5.4 % (3-14); Neutrophils Absolute Auto 2200 /uL (1500-7000); Neutrophils Percent Auto 44.8 % (50-75); Platelet Count 227 X10^3/uL (150-400); Red Cell Distribution Width 13.4 % (11.6-14.8)
[2021-07-08 14:00] LABS: Free T4, Direct Thyroxine 1.28 ng/dL (0.78-2.19)
[2021-07-08 14:13] LABS: Thyroid Stimulating Hormone 4.34 uIU/mL (0.47-4.68)
== END ==
PROVIDERS: PCP Nurse Practitioner Family; Referring Provider Nurse Practitioner Family; Visit Provider Nurse Practitioner Family
DX: E03.9 Hypothyroidism, unspecified (principal); C90.00 Multiple myeloma not having achieved remission; D64.9 Anemia, unspecified
CPT/HCPCS: 36415; 84439; 84443; 85025

== ENCOUNTER → 2021-07-23 12:04 | Outpatient (CLI) | payer MEDICARE, OTHER, SELFPAY | PROVIDERS: PCP Nurse Practitioner Family; Visit Provider Physician Assistant | DX: R10.9 Unspecified abdominal pain (principal) | CPT/HCPCS: 87077; 87086; 87186 ==

== ENCOUNTER → 2022-04-21 09:59 | Outpatient (CLI) | payer MEDICARE, OTHER, SELFPAY ==
[2022-04-21 12:14] LABS: Free T4, Direct Thyroxine 1.52 ng/dL (0.78-2.19)
[2022-04-21 12:28] LABS: Thyroid Stimulating Hormone 2.44 uIU/mL (0.47-4.68)
== END ==
PROVIDERS: PCP Family Medicine; Referring Provider Family Medicine; Visit Provider Family Medicine
DX: E03.9 Hypothyroidism, unspecified (principal)
CPT/HCPCS: 36415; 84439; 84443

== ENCOUNTER → 2023-12-04 09:34 | Outpatient (CLI) | payer MEDICARE, OTHER, SELFPAY ==
[2023-12-04 10:56] LABS: Free T4, Direct Thyroxine 1.38 ng/dL (0.78-2.19)
[2023-12-04 11:09] LABS: Thyroid Stimulating Hormone 2.83 uIU/mL (0.47-4.68)
== END ==
PROVIDERS: PCP Family Medicine; Referring Provider Family Medicine; Visit Provider Family Medicine
DX: E03.9 Hypothyroidism, unspecified (principal)
CPT/HCPCS: 36415; 84439; 84443

== ENCOUNTER → 2025-01-10 13:00 | Outpatient (CLI) | payer MEDICARE, OTHER, SELFPAY ==
[2025-01-10 13:50] LABS: Add Manual Diff / Slide Review NO; Hematocrit 33.3 % (36-46); Hemoglobin 11.7 g/dL (12.0-16.0); Lymphocytes Absolute Auto 2400 /uL (1100-4500); Mean Corpuscular HGB Conc 35.1 % (30-36); Mean Corpuscular Hemoglobin 33.9 PG (26-34); Mean Corpuscular Volume 96.6 fL (80-100); Platelet Count 227 X10^3/uL (150-400)
[2025-01-10 14:26] LABS: Alanine Aminotransferase 21 IU/L (<35); Albumin 4.3 g/dL (3.5-5.0); Albumin Globulin Ratio 1.0 (1.0-2.8); Alkaline Phosphatase 91 U/L (38-126); Blood Urea Nitrogen 11 mg/dL (7-17); Calcium 9.3 mg/dL (8.4-10.2); Carbon Dioxide 24 mmol/L (22-32); Chloride 105 mmol/L (98-107); Cholesterol 156 mg/dL (140-199); Estimated Glomerular Filt Rate > 60 mL/min (>60); Globulin 4.4 g/dL (1.7-4.1); Glucose 94 mg/dL (70-99); HDL Cholesterol 61 mg/dL (40-60); HEMOLYSIS < 15 (0-50); Potassium 3.9 mmol/L (3.4-5.1); Sodium 136 mmol/L (137-145); Total Protein 8.7 g/dL (6.3-8.2); Triglycerides 124 mg/dL (35-150)
[2025-01-10 14:40] LABS: Free T4, Direct Thyroxine 1.37 ng/dL (0.78-2.19)
[2025-01-10 14:53] LABS: Thyroid Stimulating Hormone 2.78 uIU/mL (0.47-4.68)
[2025-01-11 07:36] LABS: CRP, High Sensitivity 2.16 mg/L (0.00-3.00)
== END ==
LOC: LAB 13:01
PROVIDERS: PCP Family Medicine; Referring Provider Family Medicine; Visit Provider Family Medicine
DX: E03.9 Hypothyroidism, unspecified (principal); E55.9 Vitamin D deficiency, unspecified; D64.9 Anemia, unspecified; E78.00 Pure hypercholesterolemia, unspecified
CPT/HCPCS: 80053; 80061; 84439; 84443; 85025; 86140